=== PATIENT | male | born 1955 | race Hispanic/Latino ===

== ENCOUNTER 2016-10-18 15:02 | Inpatient (IN) | payer MEDICAID ==
[2016-10-18] MEDS ORDERED: TYLENOL PO PRN (15:13)
[2016-10-18] MEDS ORDERED: D50W (25GM) IV PRN (15:13)
[2016-10-18] MEDS ORDERED: DULCOLAX PR PRN (15:13)
[2016-10-18] MEDS ORDERED: ALUM-MAG HYDROX-SIMETH 200-200-20MG/5ML PO PRN (15:13)
[2016-10-18] MEDS ORDERED: MILK OF MAGNESIA PO PRN (15:13)
[2016-10-18] MEDS ORDERED: PROVENTIL IH PRN (15:39)
--- NOTE | 2016-10-18 15:54 | History and Physical Report ---
History of Present Illness Date: 10/18/16 Referring Facility: [facility] Date of admission: 10/18/16 15:02 Chief Complaint: left AKA History of present illness: POST ADMISSION PHYSICIAN EVALUATION ONSET DATE: 10/05/2016 IMPAIRMENT GROUP CODE: 05.3 ETIOLOGIC DIAGNOSIS: Left AKA due to occlusive disease STATUS CHANGES SINCE PREADMISSION SCREENING: PAS has been reviewed. In comparison, pt reports increased phantom pain at left residual limb; pain level 6.5/10. +BM since admission. Prior to transfer, pt reports utilizing dilaudid for pain control; now on oral medications. Will need to continue to monitor pain control. Pt remains an appropriate candidate for IRU admission. PREVIOUS FUNCTIONAL STATUS: Independent with ADLs at WC level; ambulated with right prosthesis using crutches CURRENT FUNCTIONAL STATUS: S/U to modA for ADLs; Brennon for toilet transfers HPI 61 y.o. male with known bilateral lower extremity arterial disease admitted to [facility] due to acute occlusion of left common femoral profunda, and left femoral-distal bypass. Emergent thrombectomy was performed; however, bypass graft re-occluded. Pt continued with ischemic rest pain and was recommended for amputation; started on heparin drip while awaiting surgery. Left AKA was completed on 10/10/2016. Post-op course notable for intermittent nausea and vomiting; confusion/agitation; both which have resolved. Also with stable acute blood loss anemia. Pt was noted to have decline in baseline functional levels; now admitted for aggressive therapies and ongoing medical management. Past History Past Medical History: CAD (history of CO), cancer (Hodgkin's lymphoma, s/p chemo ), COPD, diabetes, DVT (history), GERD (history of gastritis and gastric ulcers) , hypertension, hyperlipidemia, PVD, pulmonary embolism (history), other ( hiatal hernia; ) Past Surgical History: appendectomy, Other (multiple bilateral revascularization procedures; bilateral AKAs; rigth carpel tunnel release; cardiac cath; port placement; sinus surgery; polypectomy, toe amputation) Social history: Lives alone (has support at discharge), smoking. denies: alcohol abuse Family history: CAD, hypertension, other (clotting disorder; HLD) Medications and Allergies Allergies Allergy/AdvReac Type Severity Reaction Status Date / Time No Known Allergies Allergy Unverified 10/18/16 15:58 Active Meds: Active Medications Acetaminophen (Tylenol) 650 mg PO Q4H PRN PRN Reason: Pain MILD(1-3)/Fever >100.5/ADAMS Al Hydrox/Mg Hydrox/Simethicone (Alum-Mag Hydrox-Simeth [phone]/5ml) 30 ml PO Q4H PRN PRN Reason: Indigestion Albuterol (Proventil) 2.5 mg IH Q4HRT PRN PRN Reason: Shortness Of Breath Bisacodyl (Dulcolax) 10 mg HI QDAY PRN PRN Reason: Constipation unrelieved by MOM Dextrose (D50w (25gm)) 50 ml IV PRN PRN PRN Reason: Hypoglycemia Enoxaparin Sodium (Lovenox) 80 mg SUB-Q Q12H TANYA Gabapentin (Neurontin) 900 mg PO TID TANYA Insulin Aspart (Novolog) 0 units SUB-Q AC TANYA PRN Reason: Protocol Magnesium Hydroxide (Milk Of Magnesia) 30 ml PO Q4H PRN PRN Reason: Constipation Metoclopramide HCl (Reglan) 10 mg PO Q6H TANYA Nicotine (Habitrol) 21 mg TD QDAY TANYA Oxycodone HCl (Roxicodone) 10 mg PO Q4H PRN PRN Reason: Pain, Moderate (4-6) Oxycodone HCl (Oxycontin) 10 mg PO Q12HR TANYA Pantoprazole Sodium (Protonix) 40 mg PO QDAY TANYA Prednisone (Deltasone) 10 mg PO QDAY TANYA Zolpidem Tartrate (Ambien) 5 mg PO QHS PRN PRN Reason: Sleep Review of Systems All systems: negative Ears, nose, mouth and throat: no headache Cardiovascular: no chest pain, no lightheadedness Respiratory: no cough Gastrointestinal: no nausea, no vomiting, no constipation (+BM on this afternoon ) Genitourinary Male: no dysuria Neurological: other (phantom pain at residual limbs) Psychiatric: anxiety Exam - Constitutional General appearance: no acute distress, other (in WC) - EENT Eyes: EOM intact ENT: hearing intact - Neck Neck: supple, normal ROM - Respiratory Respiratory effort: normal Respiratory: bilateral: CTA - Cardiovascular Rhythm: regular Heart Sounds: Present: S1 & S2 - Extremities Extremity abnormal: other (well healed right residual limb; left residual limb- open to air; sutures and josee in place) - Gastrointestinal General gastrointestinal: Present: soft, non-tender, non-distended, normal bowel sounds - Neurologic Neurologic: CNII-XII intact, moves all extremities, other (sensation grossly intact) - Psychiatric Psychiatric: appropriate mood/affect, intact judgment & insight, memory intact, cooperative Assessment and Plan Assessment and plan: 61 y.o. male s/p left AKA due to arterial occlusion, now bilateral amputee with previous history of right AKA. The patient is medically stable, however, requires ongoing medical management. Pt is appropriate for inpatient rehabilitation admission and is thought to be able to tolerate at least 3 hours of therapy a day, 5 days a week including 1.5 hours of physical therapy and 1.5 hours of occupational therapy. Patient is able to understand and follow basic directions and has attainable rehab goals. Potential barriers/complications include falls, infection, wound dehiscence, phantom pain, worsening anemia, hypotension. Plan 1. Rehabilitation- Pt will undergo multidisciplinary/integrative rehab PT/OT, Nursing. Areas to be addressed include, but are not limited to PT for wheelchair mobility, strengthening, transfer training, ROM, endurance, sitting balance; OT for ADLs, household tasks, adaptive equipment; Nursing for carryover of therapies, pain control, education, skin integrity, medication management, bowel/bladder management; Nutrition as needed; dining services manager for discharge planning and equipment needs. Potential interventions include appropriate assistive device or adaptive equipment. Expected overall level of functional improvement by discharge is Jennie to supervision for ADLs, gait, transfers. Pt will tentatively be discharged home with outpatient PT. Estimated length of stay is 7-10 days. 2. bilateral AKAs- PT/OT to address sitting balance now with bilateral amputations; pain control; wound checks 3. acute blood loss anemia- recheck labs in AM; follow and transfuse if needed 4. HTN- reported history, however, not currently requiring any medications; will follow 5. DM- on lantus at home; however, currently on SSI and ADA diet; will resume home med when appropriate 6. GERD- continue protonix 7. PAD- recommended by Vascular Surgery, Dr. Alarcon, to remain on treatment dose lovenox indefinitely 8. history of Hodgkin's lymphoma- on chronic steroids - Patient Problems (1) Above knee amputation of left lower extremity Current Visit: Yes Status: Acute (2) History of right above knee amputation Current Visit: Yes Status: Acute (3) Acute blood loss as cause of postoperative anemia Current Visit: Yes Status: Acute (4) HTN (hypertension) Current Visit: Yes Status: Acute Qualifiers: Hypertension type: essential hypertension Qualified Code(s): I10 - Essential (primary) hypertension (5) Diabetes Current Visit: Yes Status: Acute Qualifiers: Diabetes mellitus type: type 2 Diabetes mellitus complication status: with hyperglycemia Diabetes mellitus complication detail: D Diabetic retinopathy severity: D Proliferative retinopathy type: P Diabetes mellitus macular edema: D Diabetes mellitus mcfp insulin use: with mcfp use Laterality: L Chronic kidney disease stage: C Qualified Code(s): E11.65 - Type 2 diabetes mellitus with hyperglycemia; Z79.4 - computer terminal operator (current) use of insulin (6) GERD (gastroesophageal reflux disease) Current Visit: Yes Status: Acute Qualifiers: Esophagitis presence: with esophagitis Qualified Code(s): K21.0 - Gastro- esophageal reflux disease with esophagitis (7) Arterial occlusion due to thromboembolism Current Visit: Yes Status: Acute (8) History of hodgkin's lymphoma Current Visit: Yes Status: Acute
[2016-10-18] MEDS ORDERED: NOVOLOG SUB-Q SCH (16:30)
[2016-10-18] MEDS: REGLAN PO SCH (18:24)
[2016-10-18] MEDS: LOVENOX SUB-Q SCH (18:25)
[2016-10-18] MEDS: NOVOLOG SUB-Q SCH ×2 (18:25→22:00)
[2016-10-18] MEDS: HABITROL TD SCH (18:25)
[2016-10-18] MEDS: ROXICODONE PO PRN (18:29)
[2016-10-18] MEDS ORDERED: NEURONTIN PO SCH (20:00)
[2016-10-18] MEDS: NEURONTIN PO SCH (21:00)
[2016-10-18] MEDS: OxyCONTIN PO SCH (23:22)
[2016-10-19] MEDS: ROXICODONE PO PRN ×3 (00:59→17:58)
[2016-10-19] MEDS: REGLAN PO SCH ×5 (00:59→23:38)
[2016-10-19 05:00] LABS: Basophils % (Auto) 1.3 % (0.0-1.8); Hematocrit 29.9 % (35.5-45.6); Hemoglobin 9.7 gm/dl (11.8-15.2); Mean Corpuscular HGB Conc 32 % (32-34); Mean Corpuscular Hemoglobin 28 pg (28-32); Mean Corpuscular Volume 86 fl (84-94); Platelet Count 374 K/mm3 (140-440); Red Cell Distribution Width 15.7 % (13.2-15.2); White Blood Count 5.9 K/mm3 (4.5-11.0)
[2016-10-19 05:19] LABS: Alanine Aminotransferase 56 units/L (7-56); Albumin 3.4 g/dL (3.9-5); Alkaline Phosphatase 57 units/L (35-129); Anion Gap 19 mmol/L; Bilirubin,Total 0.2 mg/dL (0.1-1.2); Blood Urea Nitrogen 12 mg/dL (9-20); Calcium 8.9 mg/dL (8.4-10.2); Carbon Dioxide 26 mmol/L (22-30); Chloride 98.5 mmol/L (98-107); Glucose 92 mg/dL (75-100); Potassium 4.5 mmol/L (3.6-5.0); Sodium 139 mmol/L (137-145); Total Protein 6.9 g/dL (6.3-8.2)
[2016-10-19] MEDS: NEURONTIN PO SCH ×3 (07:28→21:49)
[2016-10-19] MEDS: NOVOLOG SUB-Q SCH ×4 (09:45→21:50)
[2016-10-19] MEDS: OxyCONTIN PO SCH ×2 (09:53→21:49)
[2016-10-19] MEDS: PROTONIX PO SCH (09:53)
[2016-10-19] MEDS: LOVENOX SUB-Q SCH ×2 (09:53→21:50)
[2016-10-19] MEDS: DELTASONE PO SCH (09:53)
--- NOTE | 2016-10-19 14:31 | Progress Note ---
Assessment and Plan 61 y.o. male with history of PAD s/p left AKA due to arterial occlusion, now bilateral amputee with previous history of right AKA - bilateral AKAs- pain control; wound healing well; pt has right LE prosthesis, however, did not have the proper shoe for gait training on today - acute blood loss anemia- stable; follow - HTN- reported history, however, with hypotension this AM; follow; not on any oral agents currently - DM- on lantus at home; however, currently on SSI and ADA diet; no coverage required on today; follow - Patient Problems (1) Above knee amputation of left lower extremity Current Visit: Yes Status: Acute (2) History of right above knee amputation Current Visit: Yes Status: Acute (3) Acute blood loss as cause of postoperative anemia Current Visit: Yes Status: Acute (4) Diabetes Current Visit: Yes Status: Acute Qualifiers: Diabetes mellitus type: type 2 Diabetes mellitus complication status: with hyperglycemia Diabetes mellitus complication detail: D Diabetic retinopathy severity: D Proliferative retinopathy type: P Diabetes mellitus macular edema: D Diabetes mellitus terminal manager insulin use: with terminal manager use Laterality: L Chronic kidney disease stage: C Qualified Code(s): E11.65 - Type 2 diabetes mellitus with hyperglycemia; Z79.4 - manager intermediate (current) use of insulin (5) Arterial occlusion due to thromboembolism Current Visit: Yes Status: Acute (6) Hypotension Current Visit: Yes Status: Acute Qualifiers: Hypotension type: other hypotension type Trimester: T Qualified Code(s): I95.89 - Other hypotension Subjective Date of service: 10/19/16 Principal diagnosis: left AKA Interval history: Pt seen in PT gym this AM, F/U IPR course, left AKA. Pt with increased pain reported, however, only required 1 dose of breakthrough pain medication this AM ; will follow Objective - Constitutional Vitals: Vital Signs - 12hr 10/19/16 08:00 Temperature 97.7 F Respiratory 20 Rate Blood Pressure 100/58 [Left Arm] O2 Sat by Pulse 98 Oximetry General appearance: Present: mild distress (pain reported), other (sitting on edge of mat ) - EENT Eyes: EOM intact ENT: hearing intact - Neck Neck: supple, normal ROM - Respiratory Respiratory effort: normal Extremity abnormal: other (josee and sutures intact at Lt residual limb; no active drainage) - Neurologic Neurologic: CNII-XII intact - Psychiatric Psychiatric: appropriate mood/affect, cooperative - Allied health notes Allied health notes reviewed: PT (Brennon for transfers), OT (Emanuel to modA for ADLs ) - Labs CBC & Chem 7: 10/19/16 04:15 10/19/16 04:15 Labs: Abnormal lab results 10/18/16 10/19/16 10/19/16 Range/Units 17:22 04:15 04:15 RBC 3.50 L (3.65-5.03) M/mm3 Hgb 9.7 L (11.8-15.2) gm/dl Hct 29.9 L (35.5-45.6) % RDW 15.7 H (13.2-15.2) % Creatinine 0.5 L (0.8-1.5) mg/dL POC Glucose 185 H (70-105) AST 43 H (5-40) units/L Albumin 3.4 L (3.9-5) g/dL
[2016-10-19] MEDS: HABITROL TD SCH (17:53)
[2016-10-20] MEDS: ROXICODONE PO PRN ×4 (05:11→23:40)
[2016-10-20] MEDS: REGLAN PO SCH ×4 (05:12→23:39)
[2016-10-20] MEDS: NOVOLOG SUB-Q SCH ×4 (08:56→21:37)
[2016-10-20] MEDS: OxyCONTIN PO SCH ×2 (09:06→21:36)
[2016-10-20] MEDS: LOVENOX SUB-Q SCH ×2 (09:06→21:35)
[2016-10-20] MEDS: NEURONTIN PO SCH ×3 (09:07→21:00)
[2016-10-20] MEDS: PROTONIX PO SCH (09:07)
[2016-10-20] MEDS: DELTASONE PO SCH (09:07)
--- NOTE | 2016-10-20 13:17 | IRU Plan of Care ---
Interdisciplinary Plan of Care - IP IRU INTERDISCIPLINARY PLAN: [facility] Inpatient Rehab Unit Plan of Care IRU Interdisciplinary Care Plan Start: 10/18/16 16: 44 Freq: Admission then PRN Status: Active Document 10/20/16 11:05 DB (Rec: 10/20/16 11:10 DB [id number]) Interdisciplinary Problem List Interdisciplinary Problem List Interdisciplinary Problem List Impaired Bathing/Grooming Query Text:Answers will Trigger Problems Impaired Dressing and Outcomes on Worklist. Impaired Mobility Impaired Transfers Impaired Toileting Impaired Nutrition Pain Management Knowledge Deficits Impaired Home Management Impaired Safety Diabetes Education IRU Interdisciplinary Care Plan Therapy Services Therapy Services Will Include: Physical Therapy Query Text:Patient will be seen for a Occupational Therapy minimum of 3 hours of daily therapy 5 out of 7 days a week. Therapy intensity may be adjusted within a 7 consecutive day period to effectively serve the individual needs of the patient. Treatment Frequency/Intensity/Duration Treatment Frequency 5 days per week Treatment Intensity 1.5 hours per discipline (PT/OT ) daily Treatment Duration 10-14 days Problem Area: Eating/Swallowing Eating/Swallowing Outcomes Eating/Swallowing Interventions Problem Area: Bathing/Grooming Bathing/Grooming Outcomes Improve [place] w/ Bathing Bathing/Grooming Interventions ADL Training Use of Assistive Devices Therapeutic Exercise Therapeutic Activity Balance Work Activity Tolerance Work Patient/Caregiver Education Problem Area: Dressing Dressing Outcomes Improve [place] w/ LB Dressing Dressing Interventions ADL Training Use of Assistive Devices Therapeutic Exercise Balance Work Patient/Caregiver Education Problem Area: Mobility Mobility Outcomes Improve [place] w/ Bed Mobility Improve [place] w/ Ambulation Improve [place] w/ Stairs /Curb Improve [place] w/ Wheelchair Mobility Interventions Therapeutic Exercise Neuromuscular Re-Ed. Activity Tolerance Work Use of Assistive Devices Patient/Caregiver Education Bed Mobility Work Gait Training Household Mobility Work W/C Mobility Work Problem Area: Transfers Transfers Outcomes Improve [place] w/ Bed Transfers Improve [place] w/ Toilet Transfers Improve [place] w/ Tub/ Shower Transfers Improve [place] w/ Car Transfers Transfers Interventions Transfer Training Therapeutic Exercise Neuromuscular Re-Education Activity Tolerance Work Use of Assistive Devices Patient/Caregiver Education Problem Area: Bowel/Bladder Managment Bowel/Bladder Outcomes Bowel/Bladder Interventions Problem Area: Toileting Toileting Outcomes Improve [place] w/ Toileting Toileting Interventions ADL Training Balance Work Use of Assistive Devices Patient/Caregiver Education Problem Area: Nutrition Nutrition Outcomes Understand and Comply w/ Diet Nutrition Interventions Nutritional Counseling Monitor Nutrient Intake Patient/Caregiver Education Problem Area: Comprehension Comprehension Outcomes Comprehension Interventions Problem Area: Expression Expression Outcomes Expression Interventions Problem Area: Problem Solving Problem Solving Outcomes Problem Solving Interventions Problem Area: Memory Memory Outcomes Memory Interventions Problem Area: Pain Management Pain Management Outcomes Demonstrate/Verbalize Pain Strategies Pain Management Interventions Medication Management Positioning/Turning Patient/Caregiver Education Problem Area: Knowledge Deficits Knowledge Deficits Outcomes Verbalize Precautions Verbalize Understanding of S/S of Stroke Knowledge Deficits Interventions Body Mechanics/Joint Protection Education Disease Management Education Health Maintainence Education Safety Education Problem Area: Skin/Tissue Integrity Skin/Tissue Integrity Outcomes Exhibit Healing of Wound/ Incision Demonstrate Understanding of Pressure Relief Skin/Tissue Integrity Interventions Skin/Wound Care Pressure Relief Instruction Positioning/Turning Problem Area: Social Interaction Social Interaction Outcomes Social Interaction Interventions Problem Area: Adjustment to Disability Adjustment to Disability Outcomes Adjustment to Disability Interventions Problem Area: Discharge Concerns Discharge Concerns Outcomes Discharge Home w/ Necessary Equipment Have Home Health/Outpatient Services Discharge Concerns Interventions Discharge Planning Family/Caregiver Conference Family/Caregiver Training Problem Area: Community Reintegration Community Reintegration Outcomes Demonstrate Understanding of Community Resources Community Reintegration Interventions Provide Community Resources Problem Area: Home Management Home Management Outcomes Improve [place] w/ Home Management Home Management Interventions Meal Preparation Problem Area: Safety Safety Outcomes Provide Safe Environment Perform Selfcare Safely Safety Interventions Identify Fall Risk [place] Pt. to Environment Reduce Environmental Hazards Problem Area: Medication Education Medication Education Outcomes Patient/Caregiver will Verbalize Understanding of Medications Medication Education Interventions Explain Administration/Side Effects/Interactions Problem Area: Diabetes Education Diabetes Education Outcomes Demonstrate Knowledge of Resources Availlable in Diabetic Ed. Folder Diabetes Education Interventions Give Pt. Diabetes Education Folder Discuss Pathophysiology of Diabetes Problem Area: Oxygenation Oxygenation Outcomes Oxygenation Interventions Problem Area: Cardiovascular Cardiovascular Outcomes Cardiovascular Interventions Physician Only Medical Prognosis and Rehabilitation Patient demonstrates good Potential (Completed by Physician) rehab potential. Medical Prognosis: Good This plan of care has been developed based on the findings from the pre- admission assessment, post admission physician evaluation, information gathered from the assessments from all therapy disciplines and other pertinent clinicians. The plan of care has been reviewed and discussed in collaboration with the interdisciplinary team. The plan of care will be reviewed and updated at least weekly. 61 y.o. male s/p left AKA due to arterial occlusion, now bilateral amputee with previous history of right AKA. The patient remains at risk for falls, infection , wound dehiscence, phantom pain, worsening anemia, hypotension. BP improving since admission; will continue to follow H/H. Pt with slowly improving pain; educated on breakthrough pain meds; continue to hold lantus, on SSI. Tolerating therapies to date; remains an appropriate candidate for IRU admission.
--- NOTE | 2016-10-20 13:22 | Progress Note ---
Assessment and Plan 61 y.o. male with history of PAD s/p left AKA due to arterial occlusion, now bilateral amputee with previous history of right AKA - bilateral AKAs- ongoing oral pain control; wound healing well - acute blood loss anemia- recheck on Sunday - hypotension- improving; asymptomatic - DM- on lantus at home; however, currently on SSI and ADA diet; minimal coverage required since admission; follow - Patient Problems (1) Above knee amputation of left lower extremity Current Visit: Yes Status: Acute (2) History of right above knee amputation Current Visit: Yes Status: Acute (3) Acute blood loss as cause of postoperative anemia Current Visit: Yes Status: Acute (4) Diabetes Current Visit: Yes Status: Acute Qualifiers: Diabetes mellitus type: type 2 Diabetes mellitus complication status: with hyperglycemia Diabetes mellitus complication detail: D Diabetic retinopathy severity: D Proliferative retinopathy type: P Diabetes mellitus macular edema: D Diabetes mellitus retirement insulin use: with retirement use Laterality: L Chronic kidney disease stage: C Qualified Code(s): E11.65 - Type 2 diabetes mellitus with hyperglycemia; Z79.4 - exterminator helper termite (current) use of insulin (5) Arterial occlusion due to thromboembolism Current Visit: Yes Status: Acute (6) Hypotension Current Visit: Yes Status: Acute Qualifiers: Hypotension type: other hypotension type Trimester: T Qualified Code(s): I95.89 - Other hypotension Subjective Date of service: 10/20/16 Principal diagnosis: left AKA Interval history: Pt seen in room this AM, F/U IPR course, left AKA. Pt educated on need to request breakthrough pain medication; expressed understanding of this. Otherwise, no new complaints Objective - Constitutional Vitals: Vital Signs - 12hr 10/20/16 08:00 Temperature 98.8 F Pulse Rate [ 81 Brachial] Respiratory 20 Rate Blood Pressure 108/62 [Left Arm] O2 Sat by Pulse 96 Oximetry General appearance: Present: mild distress (secondary to pain), other (sitting up in bed) - EENT Eyes: EOM intact ENT: hearing intact - Neck Neck: supple, normal ROM - Respiratory Respiratory effort: normal Extremity abnormal: other (sleeve to left residual limb) - Gastrointestinal General gastrointestinal: Present: soft, non-tender, non-distended - Neurologic Neurologic: CNII-XII intact, moves all extremities - Psychiatric Psychiatric: appropriate mood/affect, intact judgment & insight, memory intact, cooperative - Allied health notes Allied health notes reviewed: PT (supervision for transfers), OT (Jennie to modA for ADLs) - Labs CBC & Chem 7: 10/19/16 04:15 10/19/16 04:15 Labs: Abnormal lab results 10/19/16 10/19/16 10/19/16 Range/Units 12:15 16:52 20:51 POC Glucose 141 H 168 H 240 H (70-105) 10/20/16 10/20/16 Range/Units 06:37 11:49 POC Glucose 131 H 143 H (70-105)
[2016-10-20] MEDS: HABITROL TD SCH (17:01)
[2016-10-21] MEDS: ROXICODONE PO PRN (04:30)
[2016-10-21] MEDS: REGLAN PO SCH ×4 (06:43→23:00)
[2016-10-21] MEDS: NOVOLOG SUB-Q SCH ×4 (09:11→23:01)
[2016-10-21] MEDS: PROTONIX PO SCH (09:12)
[2016-10-21] MEDS: NEURONTIN PO SCH ×3 (09:12→20:04)
[2016-10-21] MEDS: DELTASONE PO SCH (09:12)
[2016-10-21] MEDS: LOVENOX SUB-Q SCH ×2 (09:13→22:04)
[2016-10-21] MEDS: OxyCONTIN PO SCH ×2 (09:18→23:00)
[2016-10-21] MEDS: HABITROL TD SCH (17:53)
[2016-10-22] MEDS: ROXICODONE PO PRN ×3 (03:58→20:58)
[2016-10-22] MEDS: REGLAN PO SCH ×3 (06:54→17:12)
[2016-10-22] MEDS: NOVOLOG SUB-Q SCH ×4 (08:32→22:19)
[2016-10-22] MEDS: NEURONTIN PO SCH ×3 (08:33→20:58)
[2016-10-22] MEDS: DELTASONE PO SCH (08:33)
[2016-10-22] MEDS: PROTONIX PO SCH (08:33)
[2016-10-22] MEDS: LOVENOX SUB-Q SCH ×2 (08:33→21:02)
[2016-10-22] MEDS: OxyCONTIN PO SCH ×2 (12:10→22:27)
[2016-10-22] MEDS: HABITROL TD SCH (17:12)
[2016-10-23] MEDS: REGLAN PO SCH ×5 (00:05→23:28)
[2016-10-23 04:51] LABS: Hematocrit 29.1 % (35.5-45.6); Hemoglobin 9.3 gm/dl (11.8-15.2)
[2016-10-23] MEDS: ROXICODONE PO PRN ×3 (05:11→23:28)
[2016-10-23] MEDS: NEURONTIN PO SCH ×3 (08:45→21:14)
[2016-10-23] MEDS: DELTASONE PO SCH (08:46)
[2016-10-23] MEDS: PROTONIX PO SCH (08:46)
[2016-10-23] MEDS: LOVENOX SUB-Q SCH ×2 (08:46→21:16)
[2016-10-23] MEDS: OxyCONTIN PO SCH ×2 (09:17→21:15)
[2016-10-23] MEDS: NOVOLOG SUB-Q SCH ×4 (09:18→21:16)
--- NOTE | 2016-10-23 13:19 | Progress Note ---
Assessment and Plan 61 y.o. male with history of PAD s/p left AKA due to arterial occlusion, now bilateral amputee with previous history of right AKA - bilateral AKAs- ongoing oral pain control; wound healing well - acute blood loss anemia- H/H stable - hypotension- stable - DM- on lantus at home; only requires 1-2 units intermittently; continue SSI and ADA diet - team conference to be held on tomorrow - Patient Problems (1) Above knee amputation of left lower extremity Current Visit: Yes Status: Acute (2) History of right above knee amputation Current Visit: Yes Status: Acute (3) Acute blood loss as cause of postoperative anemia Current Visit: Yes Status: Acute (4) Diabetes Current Visit: Yes Status: Acute Qualifiers: Diabetes mellitus type: type 2 Diabetes mellitus complication status: with hyperglycemia Diabetes mellitus complication detail: D Diabetic retinopathy severity: D Proliferative retinopathy type: P Diabetes mellitus macular edema: D Diabetes mellitus retirement insulin use: with retirement use Laterality: L Chronic kidney disease stage: C Qualified Code(s): E11.65 - Type 2 diabetes mellitus with hyperglycemia; Z79.4 - detention (current) use of insulin (5) Arterial occlusion due to thromboembolism Current Visit: Yes Status: Acute (6) Hypotension Current Visit: Yes Status: Acute Qualifiers: Hypotension type: other hypotension type Trimester: T Qualified Code(s): I95.89 - Other hypotension Subjective Date of service: 10/23/16 Principal diagnosis: left AKA Interval history: Pt seen in room this AM, F/U IPR course, left AKA. Pt reports difficulty sleeping on last night due to anxiety; states this also occurred prior to admission; overall pain control is slowly improving, rated 4/10 Objective - Constitutional Vitals: Vital Signs - 12hr 10/23/16 10/23/16 10/23/16 05:11 07:11 08:00 Temperature 97.9 F Pulse Rate [ 76 Brachial] Respiratory 20 20 76 H Rate Respiratory Rate [Left Leg] Blood Pressure 107/60 [Left Arm] O2 Sat by Pulse 97 Oximetry 10/23/16 10/23/16 09:17 10:17 Temperature Pulse Rate [ Brachial] Respiratory 20 18 Rate Respiratory 20 Rate [Left Leg] Blood Pressure [Left Arm] O2 Sat by Pulse Oximetry General appearance: Present: no acute distress - EENT Eyes: EOM intact ENT: hearing intact - Neck Neck: supple, normal ROM - Respiratory Respiratory effort: normal Extremity abnormal: other (junior analyst sock to Left residual limb) - Gastrointestinal General gastrointestinal: Present: soft, non-tender, non-distended - Neurologic Neurologic: CNII-XII intact, moves all extremities - Psychiatric Psychiatric: appropriate mood/affect, cooperative - Allied health notes Allied health notes reviewed: PT (Jennie for transfers, except Brennon for floor/ stair transfers), OT (modA for LB dressing and toileting) - Labs CBC & Chem 7: 10/23/16 04:16 10/19/16 04:15 Labs: Abnormal lab results 10/22/16 10/22/16 10/23/16 Range/Units 16:48 21:50 04:16 Hgb 9.3 L (11.8-15.2) gm/dl Hct 29.1 L (35.5-45.6) % POC Glucose 169 H 154 H (70-105) 10/23/16 10/23/16 Range/Units 06:23 11:58 Hgb (11.8-15.2) gm/dl Hct (35.5-45.6) % POC Glucose 133 H 178 H (70-105)
[2016-10-23] MEDS: HABITROL TD SCH (17:29)
[2016-10-23] MEDS: AMBIEN PO PRN (21:13)
[2016-10-24] MEDS: REGLAN PO SCH ×3 (06:00→17:49)
[2016-10-24] MEDS: ROXICODONE PO PRN ×3 (06:00→17:53)
[2016-10-24] MEDS: NOVOLOG SUB-Q SCH ×4 (08:21→22:35)
[2016-10-24] MEDS: DELTASONE PO SCH (08:21)
[2016-10-24] MEDS: PROTONIX PO SCH (08:21)
[2016-10-24] MEDS: NEURONTIN PO SCH ×3 (08:21→20:23)
[2016-10-24] MEDS: LOVENOX SUB-Q SCH ×2 (08:22→20:24)
[2016-10-24] MEDS: OxyCONTIN PO SCH ×2 (09:20→21:13)
--- NOTE | 2016-10-24 16:47 | Progress Note ---
Assessment and Plan 61 y.o. male with history of PAD s/p left AKA due to arterial occlusion, now bilateral amputee with previous history of right AKA - bilateral AKAs- ongoing oral pain control; wound healing well; intermittent phantom pain, on Neurontin 900mg TID; educated pain that additional agents may be required in the future if episodes become more frequent - hypotension- stable - DM- on lantus at home; only requires 1-2 units intermittently; continue SSI and ADA diet - team conference held on today- independent with eating; Jennie for ADLs and transfers, except supervision with shower transfers - Patient Problems (1) Above knee amputation of left lower extremity Current Visit: Yes Status: Acute (2) History of right above knee amputation Current Visit: Yes Status: Acute (3) Diabetes Current Visit: Yes Status: Acute Qualifiers: Diabetes mellitus type: type 2 Diabetes mellitus complication status: with hyperglycemia Diabetes mellitus complication detail: D Diabetic retinopathy severity: D Proliferative retinopathy type: P Diabetes mellitus macular edema: D Diabetes mellitus shelter insulin use: with shelter use Laterality: L Chronic kidney disease stage: C Qualified Code(s): E11.65 - Type 2 diabetes mellitus with hyperglycemia; Z79.4 - terminal clerk (current) use of insulin (4) Arterial occlusion due to thromboembolism Current Visit: Yes Status: Acute (5) Hypotension Current Visit: Yes Status: Acute Qualifiers: Hypotension type: other hypotension type Trimester: T Qualified Code(s): I95.89 - Other hypotension (6) Phantom pain after amputation of lower extremity Current Visit: Yes Status: Acute Subjective Date of service: 10/24/16 Principal diagnosis: left AKA Interval history: Pt seen in room this afternoon, F/U IPR course, left AKA. Pt updated on progress and d/c plan; excited about d/c home on tomorrow; pain slowly improving , however, has intermittent episodes of phantom pain Objective - Constitutional Vitals: Vital Signs - 12hr 10/24/16 07:30 Temperature 97.1 F L Pulse Rate [ 84 Brachial] Respiratory 20 Rate Blood Pressure 100/48 [Left Arm] O2 Sat by Pulse 97 Oximetry General appearance: Present: no acute distress - EENT Eyes: EOM intact ENT: hearing intact - Neck Neck: supple, normal ROM - Respiratory Respiratory effort: normal - Gastrointestinal General gastrointestinal: Present: soft, non-tender, non-distended - Neurologic Neurologic: CNII-XII intact, moves all extremities - Psychiatric Psychiatric: appropriate mood/affect, intact judgment & insight, memory intact, cooperative - Labs CBC & Chem 7: 10/23/16 04:16 10/19/16 04:15 Labs: Abnormal lab results 10/23/16 10/23/16 10/24/16 Range/Units 16:11 20:39 06:04 POC Glucose 170 H 210 H 115 H (70-105) 10/24/16 10/24/16 Range/Units 11:43 16:06 POC Glucose 179 H 178 H (70-105)
[2016-10-24] MEDS: HABITROL TD SCH (17:49)
[2016-10-24] MEDS: AMBIEN PO PRN (21:12)
[2016-10-25] MEDS: REGLAN PO SCH ×3 (06:44→12:28)
[2016-10-25] MEDS: NEURONTIN PO SCH ×2 (07:49→13:27)
[2016-10-25] MEDS: NOVOLOG SUB-Q SCH ×2 (07:50→12:27)
[2016-10-25] MEDS: DELTASONE PO SCH (07:50)
[2016-10-25] MEDS: PROTONIX PO SCH (07:50)
[2016-10-25] MEDS: LOVENOX SUB-Q SCH (07:59)
[2016-10-25 08:35] VITALS: BP 112/59
[2016-10-25] MEDS: OxyCONTIN PO SCH (10:16)
--- NOTE | 2016-10-25 10:17 | Discharge Summary ---
Providers - Providers Date of Admission: 10/18/16 15:02 Date of discharge: 10/25/16 Attending physician: RAINA CARBAJAL 10/18/16 15:13 Occupational Therapy Evaluate and Treat [CONS] Routine Comment: Reason For Exam: s/p Left AKA, now bilateral amputee Physical Therapy Evaluation and Treat [CONS] Routine Comment: Reason For Exam: s/p Left AKA, now bilateral amputee Primary care physician: AKILAH BHARDWAJ Hospitalization Reason for admission: Left AKA, now bilateral amputee Condition: Stable Hospital course: 61 y.o. male with prior right AKA and known bilateral lower extremity arterial disease admitted to [facility] due to acute occlusion of left common femoral profunda, and left femoral-distal bypass. Emergent thrombectomy was performed; however, bypass graft re-occluded. Pt continued with ischemic rest pain and was recommended for amputation; Left AKA completed on 10/10/2016. Post- op course notable for intermittent nausea and vomiting; confusion/agitation; acute blood loss anemia. Pt was noted to have decline in baseline functional levels and was admitted for aggressive therapies and ongoing medical management. Pt tolerated IRU course; H/H has remained stable; pain has improved. Pt has progressed well with therapies. On admission, pt required SBA /S-U for bathing, grooming, dressing; modA for toileting; Brennon for transfers. Pt has now progressed to Jennie for ADLs except SBA for shower transfers; Jennie for WC transfers and bed mobility. Pt is stable for d/c home on today. Pt declined family training with girlfriend. Disposition: DISCHARGED TO HOME OR SELFCARE - Discharge Diagnoses (1) Above knee amputation of left lower extremity Status: Acute (2) History of right above knee amputation Status: Acute (3) Diabetes Status: Acute Qualifiers: Diabetes mellitus type: type 2 Diabetes mellitus complication status: with hyperglycemia Diabetes mellitus complication detail: D Diabetic retinopathy severity: D Proliferative retinopathy type: P Diabetes mellitus macular edema: D Diabetes mellitus assisted insulin use: with assisted use Laterality: L Chronic kidney disease stage: C Qualified Code(s): E11.65 - Type 2 diabetes mellitus with hyperglycemia; Z79.4 - [facility] (current) use of insulin (4) Arterial occlusion due to thromboembolism Status: Acute (5) Hypotension Status: Acute Qualifiers: Hypotension type: other hypotension type Trimester: T Qualified Code(s): I95.89 - Other hypotension (6) Phantom pain after amputation of lower extremity Status: Acute Core Measure Documentation - Palliative Care Palliative Care/ Comfort Measures: Not Applicable - Core Measures Any of the following diagnoses?: none Exam - Constitutional Vitals: Temp Pulse Resp BP Pulse Ox 97.9 F 76 20 112/59 96 10/25/16 07:15 10/25/16 07:15 10/25/16 07:15 10/25/16 07:15 10/25/16 07:15 General appearance: Present: no acute distress - EENT Eyes: Present: EOM intact ENT: hearing intact - Neck Neck: Present: supple, normal ROM - Respiratory Respiratory effort: normal - Extremities Extremity abnormal: other (josee in place to left residual limb; healing well) - Abdominal General gastrointestinal: Present: soft, non-tender, non-distended - Psychiatric Psychiatric: appropriate mood/affect, cooperative - Neurologic Neurologic: CNII-XII intact, moves all extremities Plan Activity: no driving until cleared by PCP, fall precautions Diet: diabetic (hold scheduled insulin due to limited sliding scale required during admission) Wound: keep clean and dry Special Instructions: other (no therapies recommended until prothesis has been obtained) Durable Medical Equipment Needed Upon Discharge: other (pt has all DME) Additional Instructions: Dr. Gael Montes, Cardiology, 6 months; Dr. Best Alarcon, Vascular Surgery, 1-2 weeks Follow up with: AKILAH BHARDWAJ MD [Primary Care Provider] - 7 Days Prescriptions: Zolpidem [Ambien] 5 mg PO QHS PRN #14 tablet PRN Reason: Sleep Enoxaparin [Lovenox] 80 mg SUB-Q Q12H #60 syringe Gabapentin [Neurontin] 900 mg PO TID #120 capsule Metoclopramide [Reglan TAB] 10 mg PO Q6HR #90 tablet Nicotine [Habitrol] 21 mg TD Q24H #30 patch oxyCODONE [Roxicodone TAB] 10 mg PO Q4H PRN #90 tablet PRN Reason: Pain, Moderate (4-6) oxyCODONE ER [OxyCONTIN ER TAB] 10 mg PO Q12HR #30 tablet Pantoprazole [Protonix TAB] 40 mg PO QDAY #30 tablet predniSONE [Deltasone] 10 mg PO QDAY #30 tablet
== END 2016-10-25 15:00 | disposition home or self-care (01) | DRG 300 ==
LOC: 3B 15:02
PROVIDERS: ADMIT Family Medicine; ATTEND Family Medicine
DX: I74.3 Embolism and thrombosis of arteries of the lower extremities (principal); D62 Acute posthemorrhagic anemia; I77.9 Disorder of arteries and arterioles, unspecified; I77.1 Stricture of artery; I25.10 Atherosclerotic heart disease of native coronary artery without angina pectoris; E11.51 Type 2 diabetes mellitus with diabetic peripheral angiopathy without gangrene; I95.89 Other hypotension; J44.9 Chronic obstructive pulmonary disease, unspecified; I10 Essential (primary) hypertension; Z60.2 Problems related to living alone; E11.65 Type 2 diabetes mellitus with hyperglycemia; K21.0 Gastro-esophageal reflux disease with esophagitis; Z86.711 Personal history of pulmonary embolism; Z86.718 Personal history of other venous thrombosis and embolism; Z85.72 Personal history of non-Hodgkin lymphomas; Z82.49 Family history of ischemic heart disease and other diseases of the circulatory system; Z79.4 Long term (current) use of insulin; Z89.612 Acquired absence of left leg above knee; Z89.611 Acquired absence of right leg above knee
CPT/HCPCS: 36415; 80053; 82962; 85014; 85018; 85025; J1650; J7512